=== PATIENT | female | born 1930 | race African-American/Black ===

== ENCOUNTER 2017-12-24 13:31 | Outpatient (CLI) | payer BC ==
[~2017-12-24 13:31] MED LIST: ALPR0.5T PO; ASPI-1155 PO; ATEN-41 PO; CALC-507 PO; FA/M1TAB3 PO; GLU500 PO; LEVO112T2 PO; OMEP20CA10 PO; VALS80TA2 PO
== END 2017-12-24 20:18 | disposition home or self-care (01) ==
LOC: SMA 13:31
PROVIDERS: ATTEND Family Medicine
DX: Z12.31 Encounter for screening mammogram for malignant neoplasm of breast (principal)
CPT/HCPCS: 77067